=== PATIENT | female | born 1960 | race Caucasian/White ===

== ENCOUNTER → 2018-03-07 | Outpatient (CLI) | payer BC ==
[2015-11-21 12:26] VITALS: BP 105/59
[~2018-03-07] MED LIST: BACITRACIN TOPIC1 TU TP; BACTRIM 400 MG-1 TA1 PO
[2018-03-07 15:09] LABS: BUN/CREATININE RATIO 25.1 (6.0-26.0); CALCIUM 8.6 mg/dL (8.4-10.2); POTASSIUM 4.3 mmol/L (3.6-5.0)
== END ==
LOC: LAB 14:22
DX: C50.919 Malignant neoplasm of unspecified site of unspecified female breast (principal); E55.9 Vitamin D deficiency, unspecified; I25.10 Atherosclerotic heart disease of native coronary artery without angina pectoris; R79.1 Abnormal coagulation profile; R97.8 Other abnormal tumor markers; Z79.899 Other long term (current) drug therapy

== ENCOUNTER → 2020-01-17 | Outpatient (CLI) | payer BC ==
[2015-11-21 12:26] VITALS: BP 105/59
[~2020-01-17] MED LIST changes: +MASON NATURAL100 MG PO; +VITAMIN C500 M6 PO; +VITAMIN D31250 MC1 PO; +ZINC30 M1 PO
[2020-01-17 13:49] LABS: EOS # 0.1 (0.04-0.40); EOS % 1.8 % (1.0-5.0); HEMATOCRIT 43.7 % (37.0-47.0); HEMOGLOBIN 14.3 g/dL (12.5-16.0); LYMPH# 1.3 (1.50-4.00); MEAN CELL VOLUME 97 fl (78-100); MEAN CORPUSCULAR HEMOGLOBIN 32 pg (27-31); MEAN CORPUSCULAR HGB CONC 33 g/dL (33-37); MEAN PLATELET VOLUME 10.2 fl (7.4-10.4); MONO # 0.3 (0.20-0.80); NEU # 3.9 (1.40-6.50); PLATELET COUNT 227 K/mm3 (130-400); RED BLOOD COUNT 4.51 M/mm3 (4.10-5.30); RED CELL DISTRIBUTION WIDTH 13.4 % (11.5-14.5); WHITE BLOOD COUNT 5.6 K/mm3 (4.8-10.8)
[2020-01-17 14:21] LABS: D-DIMER 2.01 mg/L FEU (0.15-0.50)
== END ==
LOC: LAB 13:33
PROVIDERS: Physician Assistant
DX: M79.89 Other specified soft tissue disorders (principal)

== ENCOUNTER 2020-01-19 14:55 | Outpatient (RCR) | payer BC ==
[2020-01-17 15:25] VITALS: BP 121/65
[2020-01-18 15:14] VITALS: BP 107/62
[~2020-01-19] VITALS: Ht 172.7 cm; Wt 84.1 kg
[~2020-01-19 14:55] MED LIST changes: -MASON NATURAL100 MG PO; -VITAMIN D31250 MC1 PO; -ZINC30 M1 PO
[2020-01-19 15:10] VITALS: BP 135/75
[2020-01-19] MEDS ORDERED: VITAMIN D31250 MC1 PO (15:33)
[2020-01-19] MEDS ORDERED: ZINC30 M1 PO (15:34)
[2020-01-19] MEDS ORDERED: MASON NATURAL100 MG PO (15:34)
== END 2020-01-19 15:35 | disposition home or self-care (01) ==
LOC: AMSURD 14:55
DX: C50.919 Malignant neoplasm of unspecified site of unspecified female breast (principal); M79.89 Other specified soft tissue disorders
CPT/HCPCS: J1650

== ENCOUNTER → 2020-01-22 | Outpatient (CLI) | payer BC ==
[2020-01-19 15:10] VITALS: BP 135/75
[~2020-01-22] MED LIST changes: +MASON NATURAL100 MG PO; +VITAMIN D31250 MC1 PO; +ZINC30 M1 PO
[2020-01-22 09:54] LABS: ALBUMIN 4.1 g/dL (3.5-5.0); POTASSIUM 4.3 mmol/L (3.5-5.1)
[2020-01-22 09:55] LABS: CALCIUM 8.7 mg/dL (8.3-10.5)
[2020-01-22 09:57] LABS: TOTAL PROTEIN 6.8 g/dL (6.4-8.3)
[2020-01-22 09:58] LABS: EOS # 0.1 (0.04-0.40); EOS % 1.7 % (1.0-5.0); HEMATOCRIT 39.9 % (37.0-47.0); HEMOGLOBIN 12.6 g/dL (12.5-16.0); LYMPH# 0.9 (1.50-4.00); MEAN CELL VOLUME 98 fl (78-100); MEAN CORPUSCULAR HEMOGLOBIN 31 pg (27-31); MEAN CORPUSCULAR HGB CONC 32 g/dL (33-37); MEAN PLATELET VOLUME 10.1 fl (7.4-10.4); MONO # 0.4 (0.20-0.80); NEU # 2.1 (1.40-6.50); PLATELET COUNT 180 K/mm3 (130-400); RED BLOOD COUNT 4.06 M/mm3 (4.10-5.30); RED CELL DISTRIBUTION WIDTH 13.4 % (11.5-14.5); TOTAL BILIRUBIN 0.4 mg/dL (0.2-1.2); WHITE BLOOD COUNT 3.5 K/mm3 (4.8-10.8)
[2020-01-22 11:06] LABS: ERYTHROCYTE SEDIMENTATION RATE 23 mm/hr (0-30)
== END ==
LOC: RAD 09:00
PROVIDERS: Internal Medicine
DX: C77.9 Secondary and unspecified malignant neoplasm of lymph node, unspecified (principal); C79.89 Secondary malignant neoplasm of other specified sites; L03.119 Cellulitis of unspecified part of limb; R91.8 Other nonspecific abnormal finding of lung field; Z85.3 Personal history of malignant neoplasm of breast
CPT/HCPCS: Q9967

== ENCOUNTER → 2020-03-18 | Outpatient (CLI) | payer BC | LOC: RAD 14:58 | DX: C50.412 Malignant neoplasm of upper-outer quadrant of left female breast (principal); K80.20 Calculus of gallbladder without cholecystitis without obstruction; Z90.12 Acquired absence of left breast and nipple | CPT/HCPCS: Q9967 ==

== ENCOUNTER → 2020-06-17 | Outpatient (CLI) | payer BC | LOC: RAD 14:36 | DX: C50.412 Malignant neoplasm of upper-outer quadrant of left female breast (principal); K80.20 Calculus of gallbladder without cholecystitis without obstruction; R91.8 Other nonspecific abnormal finding of lung field | CPT/HCPCS: Q9967 ==

== ENCOUNTER → 2020-07-27 | Outpatient (CLI) | payer BC ==
[2020-07-20 08:50] VITALS: BP 136/73
== END ==
LOC: RAD 07:45
DX: C79.31 Secondary malignant neoplasm of brain (principal); R32 Unspecified urinary incontinence
CPT/HCPCS: A9585